=== PATIENT | female | born 1975 | race American Indian/Alaskan Native ===

== ENCOUNTER 2016-10-30 07:44 | Outpatient (CLI) | payer BC ==
--- NOTE | 2016-10-30 14:06 | Magnetic Resonance Report ---
MRI of the thoracic spine without contrast. History: Arnold-Chiari malformation type I. Procedure: Sagittal T1-weighted, T2-weighted, inversion recovery images, and axial T1 and T2-weighted images were used in the study. Findings: From the level of T1 through, there is an intradural intramedullary bulbous structure primary consisting of hyperintense T2 and hypointense T1 signal with some scattered intermediate signal. At T1 the maximum diameter of this structure measures 1.1 cm with gradual tapering such that the maximum diameter at the level of T5 is 4.5 mm with an apparent central septation. From T6-T12, no abnormalities are seen. There are no extradural abnormalities. Vertebral body heights are well-maintained with normal intervertebral discs. 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 The syrinx appears to extend above the level of T1 with limited imaging of the lower cervical spine on this study.
== END 2016-10-30 07:45 | disposition home or self-care (01) ==
LOC: MRI 07:44
PROVIDERS: ATTEND Neurological Surgery
DX: G95.0 Syringomyelia and syringobulbia (principal); G93.5 Compression of brain
CPT/HCPCS: 72146

== ENCOUNTER 2017-04-22 07:21 | Outpatient (CLI) | payer BC ==
--- NOTE | 2017-04-22 08:21 | Cat Scan Report ---
CT HEAD WITHOUT CONTRAST: HISTORY: Chiari one malformation, compression of brain, G93.5. Serial contiguous axial images were obtained through the cranium. Intravenous contrast material was not administered. No comparison at this facility. Suboccipital craniectomy changes are identified at midline. Posterior C1 ring has also been resected although this is partially imaged. Mild crowding at the foramen magnum is noted. The brain parenchyma attenuation and is ontiveros-white interface are within normal limits. There is no evidence for mass, hemorrhage or hydrocephalus. No chronic infarct. A CSF density fluid collection is seen posterior to the occipital craniectomy site measuring 3.3 x 1.9 cm in axial plane and is consistent with a pseudomeningocele. The visualized paranasal sinuses and mastoid air cells are clear. IMPRESSION: Postsurgical changes in the posterior fossa as outlined above. 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 There is no significant mass effect or hydrocephalus.
== END 2017-04-22 07:22 | disposition home or self-care (01) ==
LOC: CT 07:21
PROVIDERS: ATTEND Neurological Surgery
DX: G93.5 Compression of brain (principal); Z90.89 Acquired absence of other organs
CPT/HCPCS: 70450

== ENCOUNTER 2019-02-04 07:33 | Outpatient (CLI) | payer BC ==
--- NOTE | 2019-02-04 08:32 | Cat Scan Report ---
CT HEAD WITHOUT CONTRAST INDICATION : G93.5 ARNOID-CHIARI MALFORMATION TYPE 1. Follow-up from brain surgery last year. TECHNIQUE: Axial imaging performed from the skull apex through the skull base without the use of con trast. Sagittal and coronal reformatted images. All CT scans at this location are performed using C T dose reduction for ALARA by means of automated exposure control. COMPARISON: 04/22/2017 CT head. FINDINGS: Parenchyma: Surgical changes in the posterior fossa consistent with suboccipital craniectomy are aga in noted and unchanged. The previously described occipital pseudomeningocele has resolved. The brain parenchyma attenuation and its ontiveros-white interface is within normal limits. No hemorrhage, mass, inf arct or extra-axial fluid collection. Ventricles: Ventricles are normal in size and appear symmetric. Bones: No acute osseous abnormality. Sinuses: Sinuses and mastoid air cells are clear. Soft tissues: Soft tissues including the orbits appear normal. IMPRESSION: Stable surgical changes in the posterior fossa. An occipital pseudomeningocele has resolv ed. Otherwise, normal exam. Signer Name: Matthieu Luther Jr, MD Signed: 02/04/2019 8:28 AM Workstation Name: [id number]
== END 2019-02-04 07:34 | disposition home or self-care (01) ==
LOC: CT 07:33
PROVIDERS: ATTEND Neurological Surgery
DX: G93.5 Compression of brain (principal)
CPT/HCPCS: 70450

== ENCOUNTER 2019-03-31 10:20 | Outpatient (CLI) | payer BC ==
--- NOTE | 2019-03-31 14:43 | Ultrasound Report ---
ULTRASOUND-GUIDED NEEDLE CORE BIOPSY RIGHT BREAST WITH CLIP PLACEMENT CLINICAL: A mass with calcifications identified at [facility] comparison images are available. FINDINGS: The procedure was explained to the patient and informed consent was obtained. Ultrasound demonstrated the previously identified complex cyst with calcifications at 6:00 2 cm from the nipple.. I marked the breast with a felt tip marker and a timeout was called. The skin was prepped with Chloro -Prep and anesthetized with 1% lidocaine. Needle core biopsy was performed through small dermatotomy using ultrasound guidance, 2% lidocaine wi th epinephrine for deep anesthesia and a 14-gauge Achieve biopsy device. Four samples were obtained a nd placed in formalin. The lesion appeared to collapse and a localizer clip was placed. The patient t olerated the procedure well and there were no apparent complications. Hemostasis was achieved with mi nimal effort and a sterile dressing was applied. A post procedure mammogram demonstrated persistence of the mammographic lesion and discordant clip po sition by approximately 2 cm. I brought the patient back to the ultrasound suite and using sterile te chnique and additional anesthetic, additional samples were obtained from the lesion. The lesion showe d complete collapse and a second biopsy clip was deployed within the lesion. A repeat mammogram show decreased size of the lesion with concordant clip deployment. She left the department in good conditi on and was given instructions for wound care and follow-up. IMPRESSION: Uncomplicated ultrasound guided needle core biopsy with clip placement right breast. Signer Name: Dell Fitzgerald MD Signed: 03/31/2019 2:38 PM Workstation Name: [id number]
--- NOTE | 2019-03-31 14:49 | Mammography Report ---
RIGHT DIGITAL DIAGNOSTIC MAMMOGRAM CLINICAL: For clip placement after ultrasound-guided needle biopsy. COMPARISON: 03/16/2019 [facility] mammogram FINDINGS: 2 initial images were obtained and demonstrate the localizer clip to be approximately 2 cm medial and inferior to the biopsied lesion. The patient was taken back and additional samples were ob tained and a second clip was placed. This clip is a larger U-shaped clip is now identified within the lesion. The lesion also is slightly smaller. IMPRESSION: Concordant clip deployment. Signer Name: Dell Fitzgerald MD Signed: 03/31/2019 2:45 PM Workstation Name: [id number]
== END 2019-03-31 10:21 | disposition home or self-care (01) ==
LOC: SPVWC 10:20
PROVIDERS: ATTEND Surgery
DX: R92.8 Other abnormal and inconclusive findings on diagnostic imaging of breast (principal); R92.1 Mammographic calcification found on diagnostic imaging of breast
CPT/HCPCS: 19083; 77065; A4648; 88305; 88342

== ENCOUNTER 2019-04-14 08:20 | Outpatient (CLI) | payer BC ==
--- NOTE | 2019-04-15 10:52 | Magnetic Resonance Report ---
BILATERAL BREAST MR WITHOUT AND WITH GADOLINIUM INDICATION: Family history of breast cancer and a recent abnormal right mammogram. She had an ultras ound-guided needle biopsy on 03/31/2019 with benign pathology. Pathology: Fragments of benign fibrofat ty tissue with fat necrosis and associated microcalcifications. COMPARISONS: Recent mammograms and right breast ultrasound. TECHNIQUE: Axial 1.0 mm T1 without, axial high-resolution 2.0 mm T2 and axial 1.0 mm dynamic vibrant high-resolution postcontrast T1 fat saturation sequences on a 1.5 Fina magnet. The examination was p erformed with an 8-channel dedicated [place] breast coil. Post-processing with CAD and subtraction was performed on an [employer] workstation. 18.0 cc of MultiHance was injected without incident for the c ontrast portion of the exam. Consent was obtained prior to the administration of the contrast. FINDINGS: RIGHT BREAST: Minimal background parenchymal enhancement. No suspicious mass or suspicious enhancemen t. An oval relatively smooth 1.2 x 1.0 x 0.9 cm nonenhancing mass at 6:00 correlates with the recentl y biopsied lesion. A biopsy clip is identified dependently within the mass and there is a second biop sy clip a few centimeters more superior. The mass demonstrates hyperintensity on T1 and T2 and is con sistent with a benign oil cyst. No suspicious lymph nodes. LEFT BREAST: Minimal background parenchymal enhancement. No mass or suspicious enhancement. No suspic ious lymph nodes. IMPRESSION: Negative study with a benign 1.2 cm oil cyst at 6:00 right breast. Recommend routine mamm ographic screening. BI-RADS Category 2: Benign Signer Name: Dell Fitzgerald MD Signed: 04/15/2019 10:47 AM Workstation Name: [id number]
== END 2019-04-14 08:21 | disposition home or self-care (01) ==
LOC: SPVIMAG 08:20
PROVIDERS: ATTEND Surgery
DX: N60.01 Solitary cyst of right breast (principal)
CPT/HCPCS: A9577; C8908; 77049

== ENCOUNTER 2019-09-08 15:11 | Emergency (ER) | payer BC ==
[2019-09-08 17:00] VITALS: BP 117/77
--- NOTE | 2019-09-08 17:03 | Event Note ---
ED Screening Note Date of service: 09/08/19 Time: 16:58 ED Screening Note: 44 y o f presents with right hip pain worsening x 2 days states worsen with movement causing pain with walking no injuries or falls no relief with motrin and muscle relaxer This initial assessment/diagnostic orders/clinical plan/treatment(s) is/are subject to change based on patients health status, clinical progression and re- assessment by fellow clinical providers in the ED. Further treatment and workup at subsequent clinical providers discretion. Patient/guardian urged not to elope from the ED as their condition may be serious if not clinically assessed and managed. Initial orders include: xr r hip acc eval
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
[2019-09-08] MEDS ORDERED: oxyCODONE /ACETAMINOPHEN 5-325MG TAB PO ONE (23:09)
[2019-09-08] MEDS ORDERED: methylPREDNISolone Sod Succinate 125 MG/2 ML INJ IM ONE (23:09)
== END 2019-09-09 01:10 | disposition home or self-care (01) ==
LOC: ED 15:11
DX: M25.551 Pain in right hip (principal); Z53.21 Procedure and treatment not carried out due to patient leaving prior to being seen by health care provider
CPT/HCPCS: 73502; 96372; J2930